=== PATIENT | female | born 1945 | race Caucasian/White ===

== ENCOUNTER 2016-08-27 13:19 | Inpatient (IN) | payer OTHER, MEDICARE ==
--- NOTE | ~2016-08-27 | CO ---
Unit #: [id number] #: [id number] Patient: MARLO ACUÑA [id number] [facility] [address] [facility]. [place], [place] [address] [id number] MR#: [id number] NAME: MARLO ACUÑA. ROOM: 573 Age: 71 Sex: F Admission Date: 08/27/2016 : 1945 Attending Physician: Ave Tyler M.D. Primary Care Physician: Lexie Vickers M.D. Requesting Physician: Ave Tyler M.D. CONSULTATION REPORT REASON FOR CONSULTATION REQUEST Atrial fibrillation with rapid ventricular response, elevated BNP. HISTORY OF PRESENT ILLNESS Mrs. Acuña is a 71-year-old, female seen in the emergency room at [facility], room T4. She has a history of hypertension, dyslipidemia, and GERD, as well as (1) dementia. She is unable to provide any history. When I asked why she was here, she stated to me that her father was coming. When I asked if her father had had any heart disease, she stated that her father was coming. Thus, we can find no meaningful data. She does not carry a history of atrial fibrillation, but presented after oxygen saturation was found to be 88% on room air [facility] the jail, short of breath noted. In the emergency room at [facility], the initial ECG demonstrated rates of 117, atrial fibrillation, without acute ST changes. After Cardizem was started and drip currently in place, heart rate is 90 and irregularly irregular. Blood pressure is 135. Labs showed pO2 of 66, pCO2 of 38, creatinine 1, potassium 4.3, and magnesium 2.2. TSH is 1.58, white blood count 8.1, and hemoglobin 13.9. Urine is negative. PAST MEDICAL HISTORY Dementia. History of hypertension, dyslipidemia, gastroesophageal reflux. PAST SURGICAL HISTORY Not known. SOCIAL HISTORY [facility] the jail. She stated to me that she did smoke previously, but does not smoke now. FAMILY HISTORY As above in my HPI. ALLERGIES None. MEDICATIONS 1. Acetaminophen 650 mg q.4 hours p.r.n. 2. Aspirin 81 mg every day. 3. Lipitor 10 mg every day. 4. Cetirizine 10 mg every day. 5. Depakote 250 mg t.i.d. Unit #: [id number] #: [id number] Patient: MARLO ACUÑA 6. Lasix 20 mg every day. 7. Lisinopril 10 mg every day. 8. Ativan 0.5 mg q.6 hours p.r.n. 9. Milk of magnesia. 10. Namenda. 11. Nystatin cream. 12. Trazodone 50 mg q.h.s. 13. Zofran 4 mg q.8 hours p.r.n. REVIEW OF SYSTEMS Not obtainable. PHYSICAL EXAMINATION GENERAL APPEARANCE: Pleasant, no acute distress. VITAL SIGNS: Blood pressure 125/88, heart rate is 93 and irregularly irregular, respiratory rate is 18, height is 5 feet, 6 inches, and weight 210 pounds. SKIN: Warm and dry. No xanthelasma. MUSCULOSKELETAL: No missing digits. Moves easily for evaluation. NEUROLOGICAL: Not oriented at all. Cannot assess well. Does not follow commands at all. HEENT: Pupils equal, round and reactive. No oral cyanosis. No icterus. NECK: Carotids clear to auscultation with no carotid bruits. Normal carotid upstroke bilaterally. Thyroid is normal in size and texture without masses or tenderness. CHEST: Clear to auscultation with no rales or wheezes. Good effort. CARDIAC: Normal point of maximum impulse. Normal S1 and S2. No S3, S4 or rub. ABDOMEN: No hepatosplenomegaly, masses or tenderness. Normal bowel sounds. No abdominal bruits heard. EXTREMITIES: No clubbing, cyanosis or edema. Excellent posterior tibial and dorsalis pedis pulses. DIAGNOSTIC STUDIES As above regarding ECG and labs. IMPRESSION 1. Atrial fibrillation, rapid ventricular response with mild acute respiratory decompensation. Rate is now controlled on Cardizem. We will wait until the echo is performed tomorrow to see the meds which we will place her on. 2. CHF by BNP elevation. She does not have ascites, does not have rales, and does not have edema. The BNP elevation may be related to the atrial fibrillation alone. 3. Alzheimer's. COMMENT 1. I have seen these three issues associated; the Alzheimer's, CHF, and atrial fibrillation in the presence of sleep apnea. I think it would be reasonable to check overnight for this. 2. Also, consideration regarding discontinuation of the trazodone and Xanax. 3. We will follow troponins. 4. Further orders based on echo. Right now, I think we can treat symptomatically. 5. The larger question is going to be anticoagulation. I am not convinced of her stability in terms of being able to get around. She does have an ankle bracelet in place, thus my suspicion is that she Unit #: [id number] #: [id number] Patient: MARLO ACUÑA is able to get around a little bit, but I do not know about falling. Thus, I would consider her fall risk to be significant. We will continue to follow with you. Thanks very much for this consultation. Dictated by... Nikolay Caelro/jyoti TD: 08/28/2016 08:15 JOB #: [id number] CONSULTATION REPORT Page 1 of 1 X Aaron Marcum MD CONSULTATION REPORT
--- NOTE | ~2016-08-27 | HP ---
Unit #: [id number] #: [id number] Patient: MARLO ACUÑA [id number] [facility] [address] [facility]. [place], [place] [address] [id number] MR#: [id number] NAME: MARLO ACUÑA. ROOM: Age: 71 Sex: F Admission Date: 08/27/2016 : 1945 Attending Physician: Cecilio Sheikh D.O. Primary Care Physician: Lexie Vickers M.D. HISTORY AND PHYSICAL CHIEF COMPLAINT Short of air. HISTORY OF PRESENT ILLNESS The patient is a 71-year-old female with a past medical history of hypertension, hyperlipidemia, gastroesophageal reflux disease and dementia, who presented to the emergency department from the prison for evaluation of the above. The patient is unable to provide history due to baseline dementia. She is apparently oriented to person only at baseline. History is obtained from chart review and discussion with the emergency room staff. The patient was noted to have an oxygen saturation of 88% on room air at the prison and was also short of breath. She was brought to the emergency department for further evaluation. In the emergency department initial pulse was 105, respiratory rate 28, oxygen saturation 97% on room air. An EKG was done and showed atrial fibrillation with rapid ventricular response and a rate of 117 beats per minute. Chest x-ray shows moderate cardiac enlargement with prominent pulmonary vasculature. BNP is 794. She was started on a Cardizem drip at 10 mg per hour. She was also given 20 mg of Lasix IV. Heart rate is currently in the 90s. She is being admitted to [facility] for evaluation and further treatment. PAST MEDICAL HISTORY 1. Dementia. 2. Hypertension. 3. Hyperlipidemia. 4. Gastroesophageal reflux disease. PAST SURGICAL HISTORY Unknown. SOCIAL HISTORY The patient is currently at a prison facility. Her code status is a full code per prison documentation. FAMILY HISTORY Unobtainable. ALLERGIES No known drug allergies. Unit #: [id number] #: [id number] Patient: MARLO ACUÑA HOME MEDICATIONS 1. Acetaminophen 650 mg q.6 h. p.r.n. 2. Aspirin 81 mg daily. 3. Atorvastatin 10 mg daily. 4. Cetirizine 10 mg daily. 5. Depakote 250 mg t.i.d. 6. Donepezil 10 mg at bedtime. 7. Lasix 20 mg daily. 8. Lisinopril 10 mg daily. 9. Ativan 0.5 mg q.6 h. p.r.n. 10. Milk of Magnesia 30 ml daily p.r.n. 11. Namenda 28 mg daily. 12. Nystatin cream. 13. Trazodone 50 mg at bedtime. 14. Zofran 4 mg q.8 h. p.r.n. REVIEW OF SYSTEMS A complete review of systems is obtainable from the patient due to baseline dementia. PHYSICAL EXAMINATION GENERAL: The patient is a female who is awake and alert. She is inattentive. VITALS: Temperature 97.4, pulse 105, respiratory rate 28, blood pressure 125/88, oxygen saturation 97% on room air. HEENT: The head is atraumatic. Mucous membranes are moist. NECK: Supple. Trachea midline. LUNGS: Bibasilar crackles. Breathing is mildly labored. HEART: Irregular. ABDOMEN: Soft and nontender with bowel sounds present in all four quadrants. EXTREMITIES: One plus pitting edema. NEUROLOGIC: The patient is oriented to person only. She does not follow commands. She is moving all extremities. PSYCHIATRIC: The patient has a flat affect. SKIN: Skin of examined areas is warm and dry. ASSESSMENT The patient is a 71-year-old female with 1. Atrial fibrillation with rapid ventricular response. This appears to be a new problem. I do not see it on any records from the prison. She is currently on Cardizem drip at 10 mg per hour. 2. Congestive heart failure exacerbation with unknown ejection fraction. The patient received 20 mg of Lasix in the emergency department. 3. Acute respiratory failure, hypoxic by history. The patient's oxygen saturation was 88% at the prison. It is currently 97% on room air. 4. Hypertension. 5. Hyperlipidemia. 6. Gastroesophageal reflux disease. 7. Dementia. PLAN 1. Admit to intermediate level. 2. 2 g sodium 1800 mL fluid restricted heart healthy diet if passes bedside swallow. 3. Cardizem drip at 10 mg per hour. 4. Monitor heart rate closely. Unit #: [id number] #: [id number] Patient: MARLO ACUÑA 5. Lovenox 1 mg/kg subcutaneous q.12 h. with first dose now, pending Dr. Marcum' recommendations. 6. Serial cardiac enzymes. 7. Check TSH and magnesium level. Two-dimensional echo. 8. Strict ins and outs. 9. Daily weights. 10. Lasix 20 mg IV daily. 11. Consult Dr. Marcum regarding new atrial fibrillation and congestive heart failure exacerbation. 12. Supplemental oxygen. 13. Check Depakote level. 14. Repeat labs in the morning, including INR. 15. Additional workup and consultants based on the above. 16. Will speak with family when available. Dictated by Nikolay Curry TD: 08/27/2016 16:10 JOB #: [id number] HISTORY AND PHYSICAL Page [address] MD HISTORY AND PHYSICAL
--- NOTE | ~2016-08-27 | DS ---
Unit #: [id number] #: [id number] Patient: MARLO ACUÑA [id number] [address] [place], [place] [address] [id number] I MR#: [id number] NAME: MARLO ACUÑA. ROOM: 573 Age: 71 Sex: F Admission Date: 08/27/2016 : 1945 Discharge Date: 08/30/2016 Attending Physician: Teddy Ware M.D. Primary Care Physician: Lexie Vickers M.D. DISCHARGE SUMMARY REASON FOR ADMISSION Dyspnea. HISTORY OF PRESENT ILLNESS/HOSPITAL COURSE The patient is a very pleasant 71-year-old female with an underlying history of hypertension, hyperlipidemia, GERD as well as vascular dementia who presented to the emergency department as a [facility] secondary to acute onset of dyspnea. The patient, herself, has moderate to severe vascular dementia. Is unable to provide any history or any review of systems and, therefore, the initial history and review of systems was solicited after penitentiary reports as well as discussion with the patient's . Initially, while she was evaluated in the emergency room, it was noted that she had an EKG which showed atrial fibrillation with rapid ventricular response. Chest x-ray also showed moderate cardiac enlargement with prominent pulmonary vasculature. BNP was elevated. She was subsequently initiated on Lasix IV as well as Cardizem. Consultation was placed to Dr. Marcum of cardiology services who continued to follow the patient through her hospital course secondary to atrial fibrillation. Consideration was given for possible chronic anticoagulation secondary to advanced age and associated comorbid conditions. The decision was made for no chronic anticoagulation. However, rate control with Cardizem p.o. was recommended. The patient did undergo a 2D echocardiogram which did show ejection fraction of 15% to 20%, severe generalized hypokinesis was noted at the left ventricle. Also, moderate to severe mitral regurg which was noted. Mild to moderate tricuspid regurgitation was noted as well. The patient has gained approximately 100 pounds over the past three years, likely secondary to sedentary lifestyle. She has gone from ambulatory to sedentary secondary to end stage dementia. At this point in time, the patient has now been cleared for discharge on appropriate medication adjustments. Please see below. The patient's does state that in the past she was evaluated for obstructive sleep apnea but refused to wear her CPAP and was unable to tolerate. We did ask Dr. Valverde for a second opinion. He stated that if patient and/or would like to have a re-evaluation, they may do so as an outpatient. Unit #: [id number] #: [id number] Patient: MARLO ACUÑA At this point in time, the patient is medically stable. Will discharge back to penitentiary. FINAL DISCHARGE DIAGNOSES 1. New onset of atrial fibrillation with rapid ventricular response. 2. Acute biventricular systolic heart failure with ejection fraction 15% to 20%. 3. Valvular heart disease. 4. Dyspnea, multifactorial in origin. 5. Acute hypoxic respiratory failure. 6. Likely obstructive sleep apnea. 7. Morbid obesity. 8. Hypertension. 9. Hyperlipidemia. 10. Moderate to severe vascular dementia, likely near end stage. 11. Chronic deconditioning. 12. Chronic immobility syndrome. FINAL DISCHARGE MEDICATIONS 1. Tylenol 650 mg p.o. q.6 p.r.n. 2. Zofran 4 mg p.o. q.8 p.r.n. 3. Milk of mag 30 mL p.o. daily p.r.n. 4. Namenda XR 28 mg p.o. daily. 5. Lasix 20 mg p.o. daily. 6. Lipitor 10 mg p.o. q. h.s. 7. Lisinopril 10 mg p.o. daily. 8. Aspirin 81 mg p.o. daily. 9. Cardizem 30 mg p.o. b.i.d. 10. Aldactone 25 mg p.o. daily. DISCHARGE CONDITION Stable. DISCHARGE DISPOSITION Home. watermaster prognosis of this patient is guarded/poor secondary to associated comorbid conditions. Dictated by... Nikolay Sousa/radha TD: 08/30/2016 08:40 JOB #: [id number] Unit #: [id number] #: [id number] Patient: MARLO ACUÑA DISCHARGE SUMMARY Page 1 of 1 X Teddy Ware MD X DISCHARGE SUMMARY
--- NOTE | ~2016-08-27 | CR72 ---
[facility] A Service of [facility] RADIOLOGY TEXT RESULTS PATIENT: MARLO ACUÑA LOCATION: [facility] 573-01 : 44 UNIT #: [id number] AGE: [address]: Teddy Ware MD SEX: F ORDER DR: [id number] [facility] [address] [place], [place] [address] [id number] I MR#: [id number] Acc #: [id number] NAME: MARLO ACUÑA : 1945 SEX: F STUDY DATE/TIME: 08/27/2016 14:01 UNIT: CEDOF ROOM: [id number] STUDY DESCRIPTION: CR Chest Single View Portable Attending Physician: Ave Tyler M.D. Ordering Physician: Cecilio Sheikh D.O. Primary Care Physician: Lexie Vickers M.D. MEDICAL IMAGING REPORT This report is preliminary unless electronic signature is present EXAM Portable chest x-ray. DATE OF EXAM 08/27/2016 HISTORY Short of air. Altered mental status. Began today. REPORT AP radiograph of the chest is presented. COMPARISON 07/04/2010 FINDINGS No acute-appearing bony abnormality. Moderate cardiac enlargement probably stable given lower lung volumes. Pulmonary vasculature is abnormally prominent. Increased central peribronchial markings. Increased linear interstitial densities in the central lung zones extending toward the periphery more pronounced in the bilateral [id number] lung zones. Some patchy densities bilateral lung bases. Overall appearance favors mild to mild/moderate cardiogenic pulmonary edema with interstitial and airspace components. No definite pleural effusion. No pneumothorax. Follow up to radiographic resolution recommended. Dictated by... Venancio Ruggiero M.D. THIS IS AN ELECTRONICALLY VERIFIED REPORT Venancio Ruggiero M.D. at 08/28/2016 9:03 AM [facility] A Service [facility] RADIOLOGY TEXT RESULTS PATIENT: MARLO ACUÑA LOCATION: [facility] 573-01 : 44 UNIT #: [id number] AGE: [address]: Teddy Ware MD SEX: F ORDER DR: Yin TD: 08/27/2016 16:37 JOB #: [id number] MEDICAL IMAGING REPORT Page 1 of 1 COPY
--- NOTE | ~2016-08-27 | CO ---
Unit #: [id number] #: [id number] Patient: MARLO ACUÑA [id number] [address] [facility]. [place], [place] [address] [id number] I MR#: [id number] NAME: MARLO ACUÑA. ROOM: 573 Age: 71 Sex: F Admission Date: 08/27/2016 : 1945 Attending Physician: Teddy Ware M.D. Primary Care Physician: Lexie Vickers M.D. CONSULTATION REPORT HISTORY OF PRESENT ILLNESS Ms. Acuña was admitted to the hospital with AFib, rapid ventricular response and exacerbation of CHF with acute hypoxemic respiratory failure. Dr. Marcum asked us to see the patient, because of the new onset atrial fib, rapid ventricular response and the possibility of obstructive sleep apnea. She had a nocturnal pulse oximetry done, which showed oxygen saturations ranging between 80% and 100%, average oxygen saturation was 93.7%, 97.4% of the saturations were greater than 90, 12 minutes were between 80% and 89% saturation. The patient has severe dementia, is in a Alzheimer's unit, is DNR. Her room air oxygen saturation with ambulation is 96%. I have talked with her and he says that she is unable to hardly keep oxygen on and does not think that she will wear a CPAP mask. He is not interested in her undergoing evaluation. HOME MEDICATIONS Included aspirin, Tylenol, atorvastatin, Depakote, Aricept, Lasix, lisinopril, Ativan, milk of magnesia, Namenda, Nyata, Desyrel, and Zofran. PAST MEDICAL HISTORY She has some history of smoking and possibly some COPD, history of hypertension, CHF, AFib. She has vascular dementia, history of CVA and stroke, cataracts, pancreatitis. SOCIAL HISTORY Reformed smoker. No alcohol. No illicit drugs. FAMILY HISTORY No familial lung disease. REVIEW OF SYSTEMS Not possible from the patient, she is confused. She is not oriented to place or time. She rambles on without able to finish her thoughts or answer the questions appropriately. PHYSICAL EXAMINATION VITAL SIGNS: Blood pressure is 118/95, pulse 75, respiratory rate 19, afebrile. HEENT: Normocephalic and atraumatic. Pupils are equal, round, and reactive. Sclerae nonicteric. Nasal passages patent. Posterior pharynx somewhat crowded, Mallampati III. NECK: Supple. Trachea midline. LUNGS: Clear to auscultation and percussion. CARDIAC: Irregular rate and rhythm. Could not appreciate murmur, rub, or gallop. Unit #: [id number] #: [id number] Patient: MARLO ACUÑA ABDOMEN: Nontender. Bowel sounds present. No hepatosplenomegaly. EXTREMITIES: Without clubbing, cyanosis, or edema. IMPRESSION 1. Possible obstructive sleep apnea with 12 minutes of hypoxia noted on room air overnight oxygen saturation. She could certainly have some degree of obstructive sleep apnea. She is somewhat drowsy during the day. 2. Biventricular congestive heart failure with an ejection fraction of 15% to 20%. 3. Acute hypoxemic respiratory failure, resolved. 4. Hypertension. 5. Hyperlipidemia. 6. Vascular dementia. PLAN Family does not really want her to undergo a sleep study, does not think that she would tolerate CPAP. I have discussed that with them and certainly one would not think she has very severe sleep apnea given only 12 minutes of desaturations. I would agree that there are potential benefits but the chances of her wearing CPAP are small given her severe dementia. I did give him our number to call should he wish to set up a further evaluation. Dictated by... Robert Valverde M.D. BALTAZAR/delroy TD: 08/30/2016 02:08 JOB #: [id number] CONSULTATION REPORT Page 1 of 1 X Robert Valverde MD X CONSULTATION REPORT
--- NOTE | ~2016-08-27 | EKG ---
PATIENT: MARLO ACUÑA UNIT #: [id number] Ventricular Rate: 117 BPM Atrial Rate: 107 BPM QRS Duration: 84 ms Q-T Interval: 274 ms QTC Calculation(Bezet): 382 ms Calculated R [place]: -2 degrees Calculated T [place]: 4 degrees Diagnosis Line: Atrial fibrillation with rapid ventricular Diagnosis Line: response with premature ventricular or aberrantly Diagnosis Line: conducted complexes Diagnosis Line: Nonspecific T wave abnormality Diagnosis Line: Abnormal ECG Diagnosis Line: No previous ECGs available Diagnosis Line: Confirmed by BOY DURON MD ([id number]) on 08/28/2016 Diagnosis Line: 10:01:38 AM INTERPRETING MD: DOMI VIZCARRA
[2016-08-27] MEDS ORDERED: ACETAMINOPHEN PO (13:56)
[2016-08-27] MEDS ORDERED: ASPIRIN81 M2 PO (13:57)
[2016-08-27] MEDS ORDERED: ALL DAY ALLERGY10 M3 PO (13:58)
[2016-08-27] MEDS ORDERED: ATORVASTATIN CA10 MG PO (13:58)
[2016-08-27] MEDS ORDERED: DEPAKOTE PO (13:59)
[2016-08-27] MEDS ORDERED: DONEPEZIL HCL10 MG PO (13:59)
[2016-08-27] MEDS ORDERED: LASIX20 MG PO (14:00)
[2016-08-27] MEDS ORDERED: LISINOPRIL10 MG PO (14:00)
[2016-08-27] MEDS ORDERED: ATIVAN0.5 MG PO (14:01)
[2016-08-27] MEDS ORDERED: MILK OF MAGNESIA PO (14:02)
[2016-08-27] MEDS ORDERED: NAMENDA XR28 MG PO (14:03)
[2016-08-27] MEDS ORDERED: DESYREL50 MG PO (14:04)
[2016-08-27] MEDS ORDERED: NYATA15 GM (14:04)
[2016-08-27] MEDS ORDERED: ZOFRAN PO (14:05)
[2016-08-27 14:15] LABS: POC - CKMB 1.6 ng/mL (0.0-7.9); POC - TROPONIN <0.05 ng/mL (<=0.05)
[2016-08-27 14:18] LABS: ARTERIAL BLOOD GAS CARBOXY HB 0.7 %sat (0.0-9.0); ARTERIAL BLOOD GAS HCO3 24.7 mmol/L; ARTERIAL BLOOD GAS PCO2 38.6 mmHg (35.0-45.0); ARTERIAL BLOOD GAS pH 7.414 (7.350-7.450)
[2016-08-27 14:19] LABS: ARTERIAL BLOOD GAS ALLEN TEST NORMAL; ARTERIAL BLOOD GAS ART SITE RIGHT RADIAL; ARTERIAL BLOOD GAS PO2 66.5 mmHg (80.0-100); ARTERIAL DRAW? YES
[2016-08-27 14:19] LABS: BASOPHIL# 0.1 X10e3 (0-0.3); BASOPHIL% 0.9 % (0-2.5); EOSINOPHIL# 0.3 X10e3 (0-0.7); EOSINOPHIL% 3.1 % (0.0-7.0); HEMATOCRIT 42.9 % (35.0-45.0); HEMOGLOBIN 13.9 gm/dL (12.0-16.0); LYMPHOCYTE% 25.1 % (17.0-45.0); MEAN CELL VOLUME 86.4 FL (83-96); MEAN CORPUSCULAR HGB CONC 32.4 g/dL (30-36); MEAN PLATELET VOLUME 11.1 FL (6.5-11.5); MONOCYTE# 0.8 X10e3 (0-1.0); MONOCYTE% 9.7 % (3.0-12.0); NEUTROPHIL% 61.2 % (40-75); PLATELET COUNT 142 X10e3 (140-420); RED BLOOD COUNT 4.97 X10e (3.90-5.30); RED CELL DISTRIBUTION WIDTH 15.1 % (11.0-15.5); WHITE BLOOD COUNT 8.1 X10e3 (4.0-10.5)
[2016-08-27 14:21] LABS: INR 1.2; PARTIAL THROMBOPLASTIN TIME 26.8 SECONDS (23.5-31.3); PROTHROMBIN TIME (PATIENT) 12.3 SECONDS (9.6-11.5)
[2016-08-27 14:22] LABS: DIFF IND NO
[2016-08-27 14:37] LABS: ALBUMIN SERUM 3.4 g/dL (3.5-5.0); BILIRUBIN, DIRECT 0.2 mg/dL (0.0-0.2); BILIRUBIN,INDIRECT 0.5 mg/dL (0.0-0.9); BILIRUBIN,TOTAL 0.7 mg/dL (0.2-2.0); CALCIUM SERUM 8.7 mg/dL (8.4-10.2); GLOM FILT RATE Estimated 56.3 mL/min (>60); POTASSIUM 4.3 mmol/L (3.5-5.1); PROTEIN TOTAL SERUM 6.4 g/dL (6.0-8.3)
[2016-08-27 16:11] LABS: URINE SOURCE CATH
[2016-08-27 16:19] LABS: URINE APPEARANCE CLEAR; URINE BILIRUBIN NEG (NEG); URINE BLOOD NEG (NEG); URINE COLOR YELLOW; URINE GLUCOSE NEG (NEG); URINE KETONE NEG (NEG); URINE LEUKOCYTE ESTERASE NEG (NEG); URINE NITRATE NEG (NEG); URINE PH 6.5 (5-8); URINE PROTEIN NEG (NEG); URINE SPECIFIC GRAVITY 1.018 (1.003-1.035)
[2016-08-27 16:23] LABS: CULTURE INDICATED? NO
[2016-08-27 16:28] LABS: POC - TROPONIN <0.05 ng/mL (<=0.05)
[2016-08-27 22:32] LABS: INR 1.2; PROTHROMBIN TIME (PATIENT) 12.7 SECONDS (9.6-11.5)
[2016-08-27 23:00] LABS: %MB 4.7 % (0.0-4.0); MB 2.9 ng/ml
[2016-08-28 03:11] LABS: HEMATOCRIT 42.4 % (35.0-45.0); HEMOGLOBIN 13.7 gm/dL (12.0-16.0); MEAN CELL VOLUME 86.7 FL (83-96); MEAN CORPUSCULAR HGB CONC 32.3 g/dL (30-36); MEAN PLATELET VOLUME 10.9 FL (6.5-11.5); RED BLOOD COUNT 4.9 X10e (3.90-5.30); RED CELL DISTRIBUTION WIDTH 15.1 % (11.0-15.5); WHITE BLOOD COUNT 9.1 X10e3 (4.0-10.5)
[2016-08-28 03:38] LABS: CK TOTAL 59 IU/L (26-140)
[2016-08-28 04:08] LABS: ALBUMIN SERUM 3.3 g/dL (3.5-5.0); GLOM FILT RATE Estimated 56.3 mL/min (>60); POTASSIUM 3.8 mmol/L (3.5-5.1); PROTEIN TOTAL SERUM 6.2 g/dL (6.0-8.3)
[2016-08-29 07:29] LABS: BUN/CREATININE RATIO 14.44; CALCIUM SERUM 8.7 mg/dL (8.4-10.2); CREATININE SERUM 0.9 mg/dL (0.6-1.4); GLOM FILT RATE Estimated 63.9 mL/min (>60); MAGNESIUM 1.9 mg/dL (1.6-3.0); POTASSIUM 3.4 mmol/L (3.5-5.1)
[2016-08-30 07:08] LABS: HEMATOCRIT 43.6 % (35.0-45.0); HEMOGLOBIN 14.1 gm/dL (12.0-16.0); MEAN CELL VOLUME 86.9 FL (83-96); MEAN CORPUSCULAR HEMOGLOBIN 28.1 PG (28-34); MEAN CORPUSCULAR HGB CONC 32.4 g/dL (30-36); MEAN PLATELET VOLUME 10.7 FL (6.5-11.5); RED BLOOD COUNT 5.01 X10e (3.90-5.30); RED CELL DISTRIBUTION WIDTH 14.8 % (11.0-15.5); WHITE BLOOD COUNT 9.2 X10e3 (4.0-10.5)
[2016-08-30 07:39] LABS: BUN/CREATININE RATIO 14.44; CREATININE SERUM 0.9 mg/dL (0.6-1.4); GLOM FILT RATE Estimated 63.9 mL/min (>60); MAGNESIUM 2.1 mg/dL (1.6-3.0); POTASSIUM 4.1 mmol/L (3.5-5.1)
== END 2016-08-30 13:25 | DRG 291 ==
LOC: CED 13:19 → CEDOF 15:55 → C5C 15:55 → CEDOF 16:22 → CED 16:22 → CEDOF 18:22 → C5C 18:22
PROVIDERS: Emergency Medicine; Family Medicine; Nurse Practitioner
PROC: B246ZZZ Ultrasonography of Right and Left Heart (ICD-10-PCS; principal; 2016-08-28)
DX: I11.0 Hypertensive heart disease with heart failure (principal); J96.01 Acute respiratory failure with hypoxia; I50.21 Acute systolic (congestive) heart failure; Z87.891 Personal history of nicotine dependence; I48.91 Unspecified atrial fibrillation; E78.5 Hyperlipidemia, unspecified; K21.9 Gastro-esophageal reflux disease without esophagitis; F01.50 Vascular dementia, unspecified severity, without behavioral disturbance, psychotic disturbance, mood disturbance, and anxiety; I08.1 Rheumatic disorders of both mitral and tricuspid valves; G47.33 Obstructive sleep apnea (adult) (pediatric); E66.01 Morbid (severe) obesity due to excess calories; Z68.33 Body mass index [BMI] 33.0-33.9, adult; M62.3 Immobility syndrome (paraplegic); Z79.82 Long term (current) use of aspirin; Z86.73 Personal history of transient ischemic attack (TIA), and cerebral infarction without residual deficits
CPT/HCPCS: 36415; 36600; 71010; 80048; 80053; 80076; 80164; 81003; 82550; 82553; 82803; 83605; 83735; 83880; 84443; 84484; 85025; 85027; 85610; 85730; 87040; 93005; 93306; 94760; 96374; 97116; 97163; 97166; 99285; G8978-GP; G8979-GP; G8987-GO; G8988-GO; G8989-GO; J1650; J1940